=== PATIENT | male | born 1965 | race Two or more races ===

== ENCOUNTER 2022-10-17 09:15 | Inpatient (IN) | payer OTHER ==
[~2022-10-17] VITALS: Ht 165.1 cm; Wt 66.2 kg
[2022-10-17] MEDS ORDERED: APIDRA100 UNIT/1 (12:52)
[2022-10-17] MEDS ORDERED: TOUJEO MAX300 UNIT/1 (12:52)
[2022-10-17] MEDS ORDERED: AVAPRO300 MG PO (12:53)
[2022-10-17] MEDS ORDERED: SIMVASTATIN5 MG PO (12:53)
[2022-10-17] MEDS ORDERED: LEVO-T75 MCG PO (12:53)
[2022-10-17] MEDS ORDERED: GLIMEPIRIDE4 M1 PO (12:53)
[2022-10-17] MEDS ORDERED: CARVEDILOL12.5 MG (12:54)
[2022-10-17] MEDS ORDERED: JANUMET 50-1,01 EACH PO (12:54)
[2022-10-17] MEDS ORDERED: ECOTRIN81 MG PO (12:54)
[2022-10-24] MEDS ORDERED: ATORVASTATIN CA40 MG (13:48)
[2022-10-24] MEDS ORDERED: CLOPIDOGREL BIS75 MG (13:48)
[2022-10-24] MEDS ORDERED: IRBESARTAN-HCT1 EAC1 (13:49)
[2022-10-24] MEDS ORDERED: APIDRA SOL100 UNIT/1 (13:49)
[2022-10-24] MEDS ORDERED: ISOSORBIDE MONO30 M2 (13:49)
[2022-10-27] MEDS ORDERED: ACETAMINOPHEN500 M2 PO (12:06)
[2022-10-27] MEDS ORDERED: NEURONTIN300 MG PO (12:06)
[2022-10-27] MEDS ORDERED: PRILOSEC OTC20 MG PO (12:06)
== END 2022-10-27 19:26 | disposition home or self-care (01) | DRG 330 ==
LOC: O/R 10-23 07:39 → SURG 10-23 09:15 → MEDJ 10-23 19:49
PROVIDERS: ADMIT Surgery; ATTEND Surgery
PROC: 0DBP4ZZ Excision of Rectum, Percutaneous Endoscopic Approach (ICD-10-PCS; 2022-10-23)
PROC: 07BC4ZZ Excision of Pelvis Lymphatic, Percutaneous Endoscopic Approach (ICD-10-PCS; 2022-10-23)
PROC: 0TQB4ZZ Repair Bladder, Percutaneous Endoscopic Approach (ICD-10-PCS; 2022-10-23)
PROC: 0DTN4ZZ Resection of Sigmoid Colon, Percutaneous Endoscopic Approach (ICD-10-PCS; principal; 2022-10-23 17:45)
PROC: 30233N1 Transfusion of Nonautologous Red Blood Cells into Peripheral Vein, Percutaneous Approach (ICD-10-PCS; 2022-10-27)
DX: C19 Malignant neoplasm of rectosigmoid junction (principal); K92.1 Melena; Z20.822 Contact with and (suspected) exposure to COVID-19; E11.9 Type 2 diabetes mellitus without complications; I11.9 Hypertensive heart disease without heart failure; D64.9 Anemia, unspecified; E78.2 Mixed hyperlipidemia

== ENCOUNTER 2022-10-31 10:15 | Outpatient (CLI) | payer OTHER ==
[~2022-10-31 10:15] MED LIST: ACETAMINOPHEN500 M2 PO; APIDRA SOL100 UNIT/1; APIDRA100 UNIT/1; ATORVASTATIN CA40 MG; AVAPRO300 MG PO; CARVEDILOL12.5 MG; CLOPIDOGREL BIS75 MG; ECOTRIN81 MG PO; GLIMEPIRIDE4 M1 PO; IRBESARTAN-HCT1 EAC1; ISOSORBIDE MONO30 M2; JANUMET 50-1,01 EACH PO; LEVO-T75 MCG PO; NEURONTIN300 MG PO; PRILOSEC OTC20 MG PO; SIMVASTATIN5 MG PO; TOUJEO MAX300 UNIT/1
== END 2022-10-31 10:24 | disposition home or self-care (01) ==
LOC: TOM 10:15
PROVIDERS: ATTEND Surgery
DX: C18.7 Malignant neoplasm of sigmoid colon (principal); S37.20XA Unspecified injury of bladder, initial encounter

== ENCOUNTER 2022-12-07 05:20 | Day surgery (SDC) | payer OTHER ==
[~2022-12-07 05:20] MED LIST changes: +HYDROCHLOROTH12.5 MG PO
[2022-12-07] MEDS ORDERED: TRAM1TAB98 PO (11:49)
== END 2022-12-07 13:00 | disposition home or self-care (01) ==
LOC: CIR.AMB 05:20
PROVIDERS: ATTEND Surgery
DX: C19 Malignant neoplasm of rectosigmoid junction (principal); Z20.822 Contact with and (suspected) exposure to COVID-19; I10 Essential (primary) hypertension; E11.9 Type 2 diabetes mellitus without complications; Z79.4 Long term (current) use of insulin; Z87.891 Personal history of nicotine dependence